=== PATIENT | female | born 1935 | race Caucasian/White ===

== ENCOUNTER → 2018-08-02 | Outpatient (CLI) | payer MEDICARE, OTHER ==
[~2018-08-02] MED LIST: AMIODARONE PO; ELIQUIS PO; FURO20TA4 PO; LEVO100T9 PO; METO25TA6 PO; POTA10TA11 PO; REV20 PO; VALS80TA2 PO
[2018-08-02 12:34] LABS: BASOPHILS % 0.7 % (0.0-2.0); HEMATOCRIT. 38.7 % (36.0-48.0); HEMOGLOBIN. 12.8 g/dL (12.0-16.0); LYMPHOCYTES % 16.9 % (20.0-50.0); MEAN CORPUSCULAR HEMOGLOBIN 31.5 pg (28.0-32.0); MEAN CORPUSCULAR VOLUME 95.3 fL (81.0-99.0); MEAN PLATELET VOLUME 7.5 fl (7.4-10.4); NEUTROPHILS % 74.4 % (40.0-76.0); PLATELET 223 x1000/uL (130-400); RED BLOOD CELL COUNT 4.06 mill/uL (4.2-5.4); RED CELL DISTRIBUTION WIDTH 15.2 % (11.6-14.6)
== END | disposition home or self-care (01) ==
LOC: LAB 11:48
PROVIDERS: ATTEND Specialist
DX: K92.1 Melena (principal)
CPT/HCPCS: 36415; 82270

== ENCOUNTER 2019-09-22 14:00 | Inpatient (IN) | payer MEDICARE, OTHER ==
[2019-09-22] VITALS (7 sets, daily range): BP systolic 122–162; BP diastolic 61–97
[~2019-09-22] VITALS: Ht 152.4 cm; Wt 54.0 kg
[2019-09-22] MEDS ORDERED: FURO40TA5 PO (16:24)
[2019-09-22] MEDS ORDERED: TAFA61CA (16:26)
[2019-09-22] MEDS ORDERED: ZINC50TA62 PO (16:29)
[2019-09-22] MEDS ORDERED: [UNRECOGNIZED DRUG - OTHER] (16:32)
[2019-09-22] MEDS ORDERED: DOXY150T5 PO (16:32)
[2019-09-22] MEDS ORDERED: FERR134T2 PO (16:34)
[2019-09-22] MEDS ORDERED: ERGO2000 PO (16:35)
[2019-09-22] MEDS ORDERED: ASCO100T12 PO (16:35)
[2019-09-22] MEDS ORDERED: SERT25TA PO (16:36)
[2019-09-22] MEDS ORDERED: CALC-854 PO (16:37)
[2019-09-22] MEDS ORDERED: BUTA1CAP45 PO (16:40)
[2019-09-22] MEDS ORDERED: DORZ10DR8 RIGHTEYE (16:41)
[2019-09-22] MEDS ORDERED: LATA2.5D2 EACHEYE (16:42)
[2019-09-22] MEDS ORDERED: BRIM.2 EACHEYE (16:43)
[2019-09-22] MEDS ORDERED: SERTRALINE HCL 25MG TABLET PO SCH (18:30)
[2019-09-22] MEDS ORDERED: ZOLPIDEM TARTRATE 5MG TABLET PO PRN (20:00)
[2019-09-22] MEDS ORDERED: METOPROLOL TARTRATE 25MG TABLET PO SCH (21:00)
[2019-09-22] MEDS: SERTRALINE HCL 50MG TABLET PO SCH (21:59)
[2019-09-22] MEDS: DORZOLAMIDE 2% OPHTH 10 ML BOTTLE RIGHTEYE SCH (22:29)
[2019-09-22] MEDS: BRIMONIDINE 0.2% OPHTH DROPS 5ML EACHEYE SCH (22:33)
[2019-09-22] MEDS: LATANOPROST 0.005% OPHTH DROPS 2.5ML EACHEYE SCH (22:34)
[2019-09-22] MEDS ORDERED: FUROSEMIDE 20MG/2ML VIAL IVP NR (22:58)
[2019-09-22] MEDS: DOXYCYCLINE HYCLATE 100MG CAPSULE PO SCH (23:47)
[2019-09-22] MEDS: SILDENAFIL CITRATE 20MG TABLET PO SCH (23:48)
[2019-09-22] MEDS: AMLODIPINE 5MG TABLET PO SCH (23:50)
[2019-09-23] VITALS (13 sets, daily range): BP systolic 92–143; BP diastolic 54–84
[2019-09-23] MEDS ORDERED: BUTALBITAL/ACETAMINOPHEN/CAFFEINE 50/325/40MG TABLET PO PRN (04:45)
[2019-09-23] MEDS: SILDENAFIL CITRATE 20MG TABLET PO SCH ×3 (06:20→21:15)
[2019-09-23] MEDS: LEVOTHYROXINE SODIUM 100MCG TABLET PO SCH (06:21)
[2019-09-23] MEDS: PANTOPRAZOLE 40MG DR TABLET PO SCH (06:21)
[2019-09-23] MEDS ORDERED: LOSARTAN POTASSIUM 50 MG TABLET PO SCH (09:00)
[2019-09-23] MEDS ORDERED: AMLODIPINE 5MG TABLET PO SCH (09:00)
[2019-09-23] MEDS ORDERED: APIXABAN 2.5 MG TABLET PO SCH (09:00)
[2019-09-23] MEDS: DOXYCYCLINE HYCLATE 100MG CAPSULE PO SCH ×2 (09:56→21:14)
[2019-09-23] MEDS: AMLODIPINE 5MG TABLET PO SCH ×2 (09:56→21:00)
[2019-09-23] MEDS: POTASSIUM CHLORIDE 10MEQ TABLET SR PO SCH (09:56)
[2019-09-23] MEDS: FUROSEMIDE 40MG TABLET PO SCH (09:57)
[2019-09-23] MEDS: BRIMONIDINE 0.2% OPHTH DROPS 5ML EACHEYE SCH ×2 (09:57→17:26)
[2019-09-23] MEDS: DORZOLAMIDE 2% OPHTH 10 ML BOTTLE RIGHTEYE SCH ×2 (09:57→17:26)
[2019-09-23] MEDS: SERTRALINE HCL 50MG TABLET PO SCH (21:14)
[2019-09-23] MEDS: TAFAMIDIS PO SCH (21:16)
[2019-09-23] MEDS: [UNRECOGNIZED DRUG - OTHER] PO SCH (21:16)
[2019-09-23] MEDS: LATANOPROST 0.005% OPHTH DROPS 2.5ML EACHEYE SCH (21:24)
[2019-09-24] VITALS (14 sets, daily range): BP systolic 114–154; BP diastolic 70–99
[2019-09-24] MEDS: LEVOTHYROXINE SODIUM 100MCG TABLET PO SCH (06:29)
[2019-09-24] MEDS: PANTOPRAZOLE 40MG DR TABLET PO SCH (06:29)
[2019-09-24] MEDS: SILDENAFIL CITRATE 20MG TABLET PO SCH ×2 (06:30→12:51)
[2019-09-24] MEDS: DOXYCYCLINE HYCLATE 100MG CAPSULE PO SCH (08:23)
[2019-09-24] MEDS: FUROSEMIDE 40MG TABLET PO SCH (08:23)
[2019-09-24] MEDS: DORZOLAMIDE 2% OPHTH 10 ML BOTTLE RIGHTEYE SCH ×2 (08:23→17:39)
[2019-09-24] MEDS: AMLODIPINE 5MG TABLET PO SCH (08:23)
[2019-09-24] MEDS: POTASSIUM CHLORIDE 10MEQ TABLET SR PO SCH (08:23)
[2019-09-24] MEDS: [UNRECOGNIZED DRUG - OTHER] PO SCH ×3 (08:24→17:39)
[2019-09-24] MEDS: BRIMONIDINE 0.2% OPHTH DROPS 5ML EACHEYE SCH ×2 (08:24→17:39)
[2019-09-24] MEDS: TAFAMIDIS PO SCH (08:29)
[2019-09-24 17:12] LABS: HEMATOCRIT 43.1 % (36.0-48.0); HEMOGLOBIN 13.9 g/dL (12.0-16.0); MEAN CORPUSCULAR HEMOGLOBIN 28.6 pg (28.0-32.0); PLATELET 224 x1000/uL (130-400); RED BLOOD CELL COUNT 4.84 mill/uL (4.2-5.4); RED CELL DISTRIBUTION WIDTH 22.1 % (11.6-14.6)
[2019-09-24] MEDS ORDERED: POTA10TA11 PO ×2 (18:13→20:40)
[2019-09-24] MEDS ORDERED: FURO40TA5 PO (18:13)
[2019-09-24] MEDS ORDERED: FURO80TA3 PO (20:42)
[2019-09-25] MEDS ORDERED: FUROSEMIDE 40MG/4ML VIAL IVP SCH (09:00)
[2019-09-25] MEDS ORDERED: LOSARTAN POTASSIUM 25 MG TABLET PO SCH ×2 (09:00)
== END 2019-09-24 20:55 | disposition home or self-care (01) | DRG 103 ==
LOC: 3WST 14:00
PROVIDERS: ADMIT Internal Medicine Clinical Cardiac Electrophysiology; ATTEND Internal Medicine Clinical Cardiac Electrophysiology
DX: G43.909 Migraine, unspecified, not intractable, without status migrainosus (principal); R26.9 Unspecified abnormalities of gait and mobility; Z96.652 Presence of left artificial knee joint; M25.561 Pain in right knee; M17.11 Unilateral primary osteoarthritis, right knee; G89.29 Other chronic pain; I50.9 Heart failure, unspecified; Z95.810 Presence of automatic (implantable) cardiac defibrillator; Z88.0 Allergy status to penicillin
CPT/HCPCS: 36415; 71045; 80048; 83036; 85027; 93005; 93306; 97162; J1940